=== PATIENT | female | born 1985 | race Caucasian/White ===

== ENCOUNTER 2016-12-19 11:08 | Emergency (ER) | payer SELFPAY ==
[2016-12-19] MEDS ORDERED: HYDROcodone/ACETAMIN 5-325 MG* 1 TAB PO ONE (12:07)
--- NOTE | 2016-12-19 12:49 | RAD ---
INDICATION: Right elbow injury. TECHNIQUE: 4 views of the right elbow were obtained. FINDINGS: There is focal soft tissue swelling posterior to the elbow. There is a transverse intra-articular fracture of the olecranon process of the ulna which is slightly distracted approximately 3 mm. No other fractures are seen. There is a joint effusion present. IMPRESSION: TRANSVERSE SLIGHTLY DISPLACED INTRA-ARTICULAR FRACTURE OF THE OLECRANON PROCESS OF THE ULNA.
[2016-12-19 15:12] VITALS: BP 137/73
--- NOTE | 2016-12-19 16:29 | ED ---
Upper Extremity Pain - HPI Summary HPI Summary: Lt hand dominant pt here w/ Rt elbow pain since falling at work earlier today. Slipped on wet surface and landed on Rt elbow. Painful, swollen. Took ibuprofen 400mg prior to arrival - some relief, ice is helping too but still painful. Has some tingling in forearm - moving wrist, fingers and shoulder but causes pain in elbow. Denies head injury and no other areas of pain or injury to report. - History of Current Complaint Chief Complaint: EDExtremityUpper Stated Complaint: RT ARM PAIN Time Seen by Provider: 12/19/16 11:50 Hx Obtained From: Patient - Allergies/Home Medications Allergies/Adverse Reactions: Allergies Allergy/AdvReac Type Severity Reaction Status Date / Time Penicillins [PCN] Allergy Unknown Verified 12/19/16 11:32 Reaction Details PMH/Surg Hx/FS Hx/Imm Hx Previously Healthy: Yes Endocrine/Hematology History: Denies: Hx Anticoagulant Therapy, Hx Blood Disorders Infectious Disease History: No Infectious Disease History: Denies: Traveled Outside the [place] in Last 30 Days - Family History Known Family History: Positive: Other - Breast ca, GF - OR - Social History Occupation: Employed Full-time Lives: With Family - moving in w/ GF this weekend Alcohol Use: Daily Alcohol Amount: 1 a day Substance Use Type: Reports: Marijuana - daily - helps w/ anxiety (not formally dx'd) Hx Tobacco Use: Yes Smoking Status (MU): Current Every Day Smoker Amount Used/How Often: 1/2 PPD Review of Systems Constitutional: Negative Eyes: Negative ENT: Negative Cardiovascular: Negative Respiratory: Negative Gastrointestinal: Negative Positive: no symptoms reported Musculoskeletal: Other - see HPI Positive: Bruising - Rt elbow Neurological: Other - see HPI Psychological: Normal All Other Systems Reviewed And Are Negative: Yes Physical Exam Triage Information Reviewed: Yes Vital Signs On Initial Exam: Initial Vitals Temp Pulse Resp BP Pulse Ox 98.3 F 77 18 123/68 100 12/19/16 11:10 12/19/16 11:10 12/19/16 11:10 12/19/16 11:10 12/19/16 11:10 Vital Signs Reviewed: Yes Appearance: Positive: Well-Appearing, Well-Nourished, Pain Distress - mild to moderate Skin: Positive: Warm, Dry - mild edema w/ early signs of ecchymosis over Rt elbow Head/Face: Positive: Normal Head/Face Inspection Eyes: Positive: Normal, EOMI ENT: Positive: Hearing grossly normal Respiratory/Lung Sounds: Positive: Breath Sounds Present Cardiovascular: Positive: Pulses are Symmetrical in both Upper and Lower Extremities Musculoskeletal: Positive: Pain @ - Rt elbow - TTP and limited ROM d/t pain - holding in 80 degrees flexion; can move wrist but triggers pain in elbow beyond 45 degrees flexion/extension; 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 Negative: Sensory/Motor Intact - decreased sensation over volar aspect of proximal Rt forearm Psychiatric: Positive: Normal Procedures - Splinting Location: Rt UE Hand-Made Type: fiberglass Splint: posterior long arm Post-Proc Neuro Vasc Exam: normal Diagnostics - Vital Signs Vital Signs Temp Pulse Resp BP Pulse Ox 12/19/16 15:11 98.3 F 72 16 137/73 12/19/16 11:12 98.3 F 76 18 123/68 100 12/19/16 11:10 98.3 F 77 18 123/68 100 - Laboratory Lab Statement: Any lab studies that have been ordered have been reviewed, and results considered in the medical decision making process. Re-Evaluation - Re-Evaluation First Eval Change: Improved - s/p norco and splint Course/Dx - Course Course Of Treatment: Pt here w/ Rt elbow injury resulting in intra-articular fx. [place] given as she already had NSAID prior to arrival. Splint and sling placed. Pt has some relief w/ tx here. Spoke w/ Lynn Lopez PA-C, oterasmo, who recommends posterior splint and f/u with seen . Discussed care plan w / pt and advised return to ED if danger s/sx present. Pt and co-worker agree w/ plan. - Diagnoses Provider Diagnoses: Closed fracture of right olecranon process - Physician Notifications Discussed Care of Patient With: Lynn Lopez PA-C Discharge - Discharge Plan Condition: Stable Disposition: HOME Prescriptions: HYDROcodone/ACETAMIN 5-325 MG* [[place] 5-325 TAB*] 1 tab PO Q6H PRN #20 tab MDD 4 PRN Reason: Pain Ibuprofen TAB* [Motrin TAB* 600 MG] 600 mg PO Q6H PRN #20 tab PRN Reason: Pain Patient Education Materials: Elbow Fracture (ED), Splint Care (ED) Forms: *Work Release Referrals: Jessica Dallas MD [Medical Doctor] - Additional Instructions: Rest, ice, elevate, keep splint in place and dry You may wear sling for comfort however remove arm throughout the day and perform shoulder movements to prevent "frozen shoulder" (adhesive capsulitis). Move fingers and wrist as well. Take ibuprofen as directed - norco (pain med) for breakthrough pain. Follow-up with orthopedics this - call today to schedule an appointment. Contact information included. *If you develop numbness, weakness in your arm, you may loosen PAGE wrap and elevate extremity. If after 20 minutes of this trial symptoms persist, return to ED
== END 2016-12-19 15:11 | disposition home or self-care (01) ==
LOC: ED 11:08
DX: S52.021A Displaced fracture of olecranon process without intraarticular extension of right ulna, initial encounter for closed fracture (principal); F17.210 Nicotine dependence, cigarettes, uncomplicated; W01.0XXA Fall on same level from slipping, tripping and stumbling without subsequent striking against object, initial encounter; Y92.9 Unspecified place or not applicable; Z88.0 Allergy status to penicillin
CPT/HCPCS: 29125; 99282

== ENCOUNTER 2016-12-25 10:29 | Day surgery (SDC) | payer OTHER ==
[~2016-12-25 10:29] MED LIST: Buffered Lidocaine 0.9% SYRIN* 5 ML/SYR SYRINGE INTRADERM ONE; Dexamethasone IV* 4 MG/ML 1 ML (4 MG) IV SLOW PU ONE; Famotidine IV* 10 MG/ML 2 ML (20 mg) IV ONE
[2016-12-25 10:41] LABS: Manual Entry Verification AS; UR Preg Internal Control QC Line Present; UR Preg Kit Lot# 7010135
[2016-12-25] MEDS ORDERED: Clindamycin 900 MG IVPREMIX(* 900 MG/50 ML SDV IV ONE (10:55)
[2016-12-25] MEDS ORDERED: Buffered Lidocaine 0.9% SYRIN* 5 ML/SYR SYRINGE ONE (10:55)
[2016-12-25] MEDS ORDERED: Dexamethasone IV* 4 MG/ML 1 ML (4 MG) ONE (10:55)
[2016-12-25] MEDS ORDERED: Famotidine IV* 10 MG/ML 2 ML (20 mg) ONE (10:55)
[2016-12-25] MEDS ORDERED: Morphine INJ* 10 MG/ML 1 ML SYRINGE ONE (12:44)
[2016-12-25] MEDS ORDERED: Bupivacaine 0.25% SDV* 30 ML ONE (13:53)
[2016-12-25] MEDS ORDERED: Midazolam* 1 MG/ML 2 ML VIAL (2 MG) ONE (14:43)
[2016-12-25] MEDS ORDERED: fentaNYL* 50 MCG/ML 2 ML VIAL (100 MCG VIAL) ONE ×5 (14:43→17:09)
[2016-12-25] MEDS ORDERED: Propofol* 10 MG/ML 20 ML BTL IV PUSH ONE (15:03)
[2016-12-25] MEDS ORDERED: Lidocaine 2% PF * 5 ML VIAL ONE (15:03)
[2016-12-25] MEDS ORDERED: Rocuronium* 10 MG/ML VIAL ONE (15:04)
[2016-12-25] MEDS ORDERED: Ketorolac INJ* 30 MG/ML 1 ML VIAL ONE (15:24)
[2016-12-25] MEDS ORDERED: KETAMINE HCL* 50 MG/ML 10 ML VIAL ONE (15:25)
[2016-12-25] MEDS ORDERED: Ondansetron INJ* 2 MG/ML VIAL ONE (15:43)
[2016-12-25] MEDS ORDERED: oxyCODONE/Acetamin 5/325 MG* TAB PO PRN (15:47)
[2016-12-25] MEDS ORDERED: HYDROcodone/ACETAMIN 5-325 MG* 1 TAB PO PRN (15:47)
[2016-12-25] MEDS ORDERED: PROCHLORPERAZINE INJ 5 MG/ML 2 ML VIAL IV PRN (15:47)
[2016-12-25] MEDS ORDERED: oxyCODONE/Acetamin 5/325 MG* TAB ONE (16:55)
[2016-12-25] MEDS: fentaNYL* 50 MCG/ML 2 ML VIAL (100 MCG VIAL) IV PRN ×4 (17:00→17:24)
[2016-12-25 17:49] VITALS: BP 107/64
--- NOTE | 2016-12-26 09:43 | RAD ---
Indication: Right elbow fracture, traumatic Fluoroscopic services provided for referring physician. 50.3 seconds of fluoroscopy time was used. 5 spot images demonstrates internal fixation of olecranon fracture. A plate and screws are in place. IMPRESSION: Fluoroscopic services provided for referring physician for internal fixation.
--- NOTE | 2016-12-26 14:22 | OP ---
DATE OF OPERATION: 12/25/16 [facility] DATE OF : 83 SURGEON: Jessica Dallas MD DENTAL INSURANCE COORDINATOR: ELVER Donald ANESTHESIOLOGIST: Dr. Contreras. ANESTHESIA: General. PRE-OP DIAGNOSIS: Right olecranon fracture with intra-articular extension. POST-OP DIAGNOSIS: Right olecranon fracture with intra-articular extension. OPERATIVE PROCEDURE: Open reduction and internal fixation of the right olecranon. Fluoro examination of the right wrist. TOURNIQUET TIME: 62 minutes at 250 mmHg. DISPOSITION: Stable. IMPLANTS: (Synthes olecranon locking plate with the appropriate length screw). INDICATIONS: Lynn Matos is a 31-year-old left-hand dominant female who sustained a work-related injury on December 19. She was diagnosed with an olecranon fracture. After extensive discussion of the risks and benefits of operative versus nonoperative treatment, she has elected to proceed with operative treatment. We did talk about risks and benefits of surgery. We also discussed that she needs to quit smoking and she verbalized understanding. Risks include but are not limited to bleeding, infection, need for further surgery, symptomatic hardware, loss of motion, risk of DVT, risk of anesthesia. He has elected to proceed. DESCRIPTION OF PROCEDURE: The patient was greeted in the preoperative area by the attending surgeon. The appropriate extremity was marked and consent was confirmed. The patient was brought back to the operative suite where she was placed in the supine position on the operating table. She then underwent general anesthesia with endotracheal intubation, after which the patient was placed in the lateral position using a hodges bag. The nonoperative arm was extended over the arm board. The other arm was passed over a small pillow. Nonsterile tourniquet was placed high on the proximal arm. The splint was removed and the skin was examined. The skin was found to be intact with a mild amount of swelling and bruising, otherwise intact. The right arm was then prepped and draped in usual sterile fashion, beginning with chlorhexidine soap, scrub, and alcohol wipe, and a final prep with ChloraPrep. After appropriate surgical pause indicating side, site, procedure, and administration of antibiotics, the Esmarch was used to exsanguinate the limb and the tourniquet inflated to 250 mmHg. Incision based on the posterior aspect of the olecranon was then made with care to bear towards the radial side to prevent any injury to the ulnar nerve. This was done with a #15 blade. Soft tissue was carefully dissected and the triceps was also split to insertion to allow for plate placement. The fracture was identified and booked opened and the edges were cleaned using a curette as well as a small rongeur. The fracture site was then irrigated to remove any excess hematoma. After this was done, fixation and reduction was done. The appropriate plate was identified and the reduction was performed through the plate at this point. A K-wire was then used to secure the proximal fragment to the distal fragment. Once this was done, the distal nonlocking screw placed in the oblong hole, was then placed using a 2.5 drill bit. This was then secured appropriately. At this point, the more proximal locking screws were placed with excellent purchase and care was taken to not penetrate the joint. This was confirmed by a fluoro. Once the plate was secured proximally, distally locking and nonlocking screws were used to secure the plate. The elbow was taken through range of motion, found to be stable. Her wrist was also examined under fluoro due to the patients pain and no fractures were identified. This was confirmed under fluoroscopic view. She was found to have full range of motion with 0 to 145 degrees. The wound was copiously irrigated with sterile saline. The fascial layer was then closed over the plate as best as possible. The triceps tendon was closed with #2 Ti-Cron sutures in a buried fashion. The wound was closed in layers using 2-0 Vicryl and 3- 0 nylon. 30 cc of 0.25% Marcaine was then used to inject the wound. Sterile dressings were applied and the tourniquet was released for a total time of 62 minutes. A well-padded posterior splint was then placed on the patient. She was awoken from anesthesia and transferred to the PACU in stable condition. POSTOPERATIVE PLAN: She will be discharged on antibiotics as well as pain medication. DVT prophylaxis was considered, but deferred due to no previous personal or family history. She was urged again to quit smoking. A post- operative exam was done and she was able to flex and extend all of her digits and her digits were pink and well perfused. She appeared to have gross sensation to light touch. The patient will follow up with my partner in the office in approximately 2 weeks. She will be nonweightbearing for 6 weeks total and she will be allowed to work on range of motion after she comes out of splint in 2 weeks. [id number]/[facility] #: [id number] MTDD
== END 2016-12-25 18:05 | disposition home or self-care (01) ==
LOC: OR 10:29
PROVIDERS: ATTEND Orthopaedic Surgery
DX: S52.031A Displaced fracture of olecranon process with intraarticular extension of right ulna, initial encounter for closed fracture (principal); W01.0XXA Fall on same level from slipping, tripping and stumbling without subsequent striking against object, initial encounter; Y92.89 Other specified places as the place of occurrence of the external cause; Y99.0 Civilian activity done for income or pay; F17.210 Nicotine dependence, cigarettes, uncomplicated
CPT/HCPCS: 76000; 81025; A9270-GY; C1713; C1776; J1100; J1885; J2250; J2270; J2405; J2704; J3010

== ENCOUNTER 2017-09-26 06:37 | Day surgery (SDC) | payer OTHER ==
--- NOTE | 2017-09-13 08:08 | HP ---
PREOPERATIVE HISTORY AND PHYSICAL: DATE OF ADMISSION/SURGERY: 09/26/17 DATE OF OFFICE VISIT: 09/11/17 ATTENDING SURGEON: Jessica Dallas MD * (DICTATED BY ELVER MARY) PROCEDURE: Right elbow removal of hardware, Synthes olecranon plate. CHIEF COMPLAINT: Right elbow. HISTORY OF PRESENT ILLNESS: Lynn is a 32-year-old female who presents to the clinic with right elbow pain. She underwent an ORIF of the right elbow with Dr. Dallas on 12/25/16. She has had continued pain due to the hardware and she has failed conservative measures and therefore has agreed to undergo a right elbow removal of hardware Synthes olecranon plate with Dr. Dallas on 09/26/17. PAST MEDICAL HISTORY: No current problems. PAST SURGICAL HISTORY: 1. Appendectomy in 2003. 2. Right elbow ORIF. Denies prior complications with anesthesia. MEDICATIONS: 1. Zofran 4 mg 1 every 6 to 8 hours as needed for nausea. 2. Ibuprofen 600 mg 1 every 6 hours as needed for pain. ALLERGIES: PENICILLIN. FAMILY HISTORY: Positive for breast cancer on her mother's side. SOCIAL HISTORY: She lives with her partner. 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 She smokes 2 cigarettes a day. She occasionally drinks alcohol. She exercises regularly. She is left hand dominant. REVIEW OF SYSTEMS: Fourteen-point review of systems was reviewed with the patient. Positive for current complaint, otherwise negative. Denies chest pain , shortness of breath, fever, chills, history of DVT or PE, history of bleeding disorder. PHYSICAL EXAMINATION GENERAL: This is a 32-year-old well-developed, well-nourished female, in no acute distress. Alert and oriented x3. Appropriate mood and affect. Appropriate balance and coordination of the upper extremities. VITAL SIGNS: Height 65, weight 124. Pulse 62, blood pressure 120/74, respiratory rate 16. BMI 20.6. HEENT: Normocephalic, atraumatic. PERRLA. Neck: Supple. Throat clear. PULMONARY: Lungs clear to auscultation bilaterally. No wheezing, rhonchi, or rales. CARDIO: Regular rate and rhythm. S1 and S2. No murmurs, gallops, or rubs. No edema. ABDOMEN: Positive bowel sounds, soft, nontender. MUSCULOSKELETAL: Right upper extremity: Skin is intact. Well-healed surgical incision. No evidence of erythema. Prominent hardware. Symmetric range of motion, range of motion 0 to 140 of the elbow. Symmetric pronation and supination, +2 radial pulses. Sensation is intact to light touch distally. STUDIES: Multi-view x-rays of the right elbow reveals a healed right elbow fracture with presence of hardware. IMPRESSION: Right elbow painful hardware. PLAN: The patient is scheduled to undergo a right elbow removal of hardware, Synthes olecranon plate, with Dr. Dallas on 09/26/17. Percocet was sent to the patient's pharmacy for postop pain management and Keflex for antibiotic prophylaxis. ELVER MARY [id number]/[facility] #: [id number] MTDD
[~2017-09-26 06:37] MED LIST changes: -Dexamethasone IV* 4 MG/ML 1 ML (4 MG) IV SLOW PU ONE; -Famotidine IV* 10 MG/ML 2 ML (20 mg) IV ONE
[2017-09-26] MEDS ORDERED: Clindamycin 900 MG IVPREMIX(* 900 MG/50 ML SDV IV ONE (07:06)
[2017-09-26] MEDS ORDERED: Midazolam* 1 MG/ML 2 ML VIAL (2 MG) ONE (07:39)
[2017-09-26] MEDS ORDERED: fentaNYL* 50 MCG/ML 2 ML VIAL (100 MCG VIAL) ONE ×3 (07:39→09:24)
[2017-09-26] MEDS ORDERED: Bupivacaine 0.25% SDV* 30 ML ONE (07:43)
[2017-09-26] MEDS ORDERED: Ondansetron INJ* 2 MG/ML VIAL ONE (08:50)
[2017-09-26] MEDS ORDERED: Ketorolac INJ* 30 MG/ML 1 ML VIAL ONE (08:50)
[2017-09-26] MEDS ORDERED: Propofol* 10 MG/ML 20 ML BTL IV PUSH ONE (08:50)
[2017-09-26] MEDS ORDERED: Famotidine IV* 10 MG/ML 2 ML (20 mg) ONE (08:50)
[2017-09-26] MEDS ORDERED: Lidocaine 2% PF * 5 ML VIAL ONE (08:50)
[2017-09-26] MEDS ORDERED: Dexamethasone IV* 4 MG/ML 1 ML (4 MG) ONE (08:50)
[2017-09-26] MEDS ORDERED: Ondansetron INJ* 2 MG/ML VIAL IV PRN (08:54)
[2017-09-26] MEDS ORDERED: HYDROcodone/ACETAMIN 5-325 MG* 1 TAB PO PRN ×2 (08:54)
[2017-09-26] MEDS ORDERED: DiMENhydriNATE IV* 50 MG/ML VIAL IV PUSH PRN (08:54)
[2017-09-26] MEDS ORDERED: Levalbuterol 0.63MG/3ML NEB* UNIT OF USE INH PRN (08:54)
[2017-09-26] MEDS ORDERED: Acetaminophen TAB* 325 MG PO PRN (08:54)
[2017-09-26] MEDS ORDERED: Naloxone* 0.4 MG/ML 1 ML VIAL IV PRN (08:54)
[2017-09-26] MEDS: fentaNYL* 50 MCG/ML 2 ML VIAL (100 MCG VIAL) IV PRN ×2 (09:26→09:44)
[2017-09-26] MEDS ORDERED: HYDROcodone/ACETAMIN 5-325 MG* 1 TAB ONE (09:28)
--- NOTE | 2017-09-26 10:11 | RAD ---
INDICATION: Removal of hardware right elbow. COMPARISON: Comparison is made with a prior study of the right elbow from June 12, 2017. TECHNIQUE: 7.7 seconds of intermittent fluoroscopic guidance were provided and 2 spot films of the right elbow were obtained in the operating room. FINDINGS: There has been removal of the surgical hardware from the proximal ulna. IMPRESSION: INTRAOPERATIVE CONTROL FILMS. CPT II Codes: G9500
[2017-09-26 10:57] VITALS: BP 104/71
--- NOTE | 2017-09-27 17:32 | OP ---
OPERATIVE REPORT: DATE OF OPERATION: 09/26/17 DATE OF : 83 SURGEON: Jessica Dallas MD EDUCATION DEAN: ELVER Coon PRE-OPERATIVE DIAGNOSIS: Retained symptomatic hardware of the right elbow. POST-OPERATIVE DIAGNOSIS: Retained symptomatic hardware of the right elbow. OPERATIVE PROCEDURE: Right elbow removal of hardware. COMPLICATIONS: None. BLOOD LOSS: Minimal. TOURNIQUET TIME: 28 minutes. INDICATIONS: Lynn Matos is a 32-year-old female who underwent previous ORIF of her olecranon fracture, which is a work-related injury on 12/25/16. She is a very thin individual and the plate was very prominent. Risks and benefits of the surgery were discussed at length and included, but not limited to bleeding, infection, damage to nerves, vessels, surrounding structures, wound nonhealing, persistent pain, need for further surgery, scarring, stiffness, incomplete relief of symptoms, risks of anesthesia as well as risk of re-fracture. DESCRIPTION OF PROCEDURE: The patient was greeted in the preoperative area by the attending surgeon. Correct extremity was marked and the consent was confirmed. The patient brought back to the operating suite. She was placed in supine position. She then underwent general anesthesia and endotracheal intubation. She was then placed in the left lateral decubitus position with all bony prominences were padded. She was secured with the hodges bag. The right elbow was draped over the arm and an unsterile tourniquet was placed on the operative arm. The right upper extremity was prepped and draped in usual sterile fashion beginning with chlorhexidine soap, scrub, and alcohol wipe and final prep with ChloraPrep. After appropriate surgical pause indicating side, site, procedure, and administration of antibiotics, the previous incision was made again with a 15 blade. The limb was exsanguinated. The tourniquet was inflated to 250 mmHg. The previous incision was made again using the 15 blade. The soft tissue was carefully dissected to expose the plate, which is readily available. All the screws were removed in their entirety. The plate was gently loosened. The care was taken to preserve the triceps as much as possible. The plate was then gently loosened and removed in its entirety. Final images were obtained. There is no evidence of re- fracture. There is solid union she was able to attain full range of motion once the plate was taken out. After the rongeur was used to debride the screw sites, the wound was copiously irrigated. The deep fascial layer was closed with 0- Vicryl. The skin and soft tissues were closed with 2-0 Vicryl and 3-0 nylon. Sterile dressings were applied. The elbow was injected with 0. 25% Marcaine plain. She was awoken from anesthesia and transferred to PACU in stable condition. She was also placed on a well- padded long-arm splint with the wrist free. She was awoken from anesthesia and transferred to PACU in stable condition. POSTOPERATIVE PLAN: She will be nonweightbearing. She will be on the splint until she sees me in the office in approximately 10 days. She will then start range of motion. She is discharged on pain medication. DVT prophylaxis considered, but deferred due to no previous personal or family history. I will see the patient back in about 10 days. [id number]/[facility] #: [id number] MTDD
== END 2017-09-26 10:54 | disposition home or self-care (01) ==
LOC: OR 06:37
PROVIDERS: ATTEND Orthopaedic Surgery
DX: T84.84XA Pain due to internal orthopedic prosthetic devices, implants and grafts, initial encounter (principal); Y83.1 Surgical operation with implant of artificial internal device as the cause of abnormal reaction of the patient, or of later complication, without mention of misadventure at the time of the procedure; S52.021S Displaced fracture of olecranon process without intraarticular extension of right ulna, sequela; X58.XXXS Exposure to other specified factors, sequela; F17.210 Nicotine dependence, cigarettes, uncomplicated
CPT/HCPCS: 76000; 81025; 88300; J1100; J1885; J2250; J2405; J2704; J3010